=== PATIENT | male | born 1940 | race Caucasian/White ===

== ENCOUNTER 2023-02-20 17:07 | Emergency (ER) | payer OTHER ==
[~2023-02-20] VITALS: Ht 177.8 cm; Wt 131.5 kg
--- NOTE | 2023-02-20 17:07 | NUR ---
EMS STATES PT WAS AT A [employer] WHEN HE WENT UNRESPONSIVE AROUND 1545 WHEN BYSTANDERS INITIATED CPR. EMS INITIAL RHYTHM WAS TORSADES AND ON AND OFF VFIB. EMS INITIATED 2 IO'S AND GAVE MAGNESIUM, SODIUM BICARB, EPIX4, CALCIUM CHLORIDE, AND 450MG OF AMIODARONE. 1658-CODE BLUE PAGED OVERHEAD 1700-PT ARRIVED TO ROOM, PT TRANSFERRED FORM [facility] TO BED WITH THE LUKUS DEVICE DOING COMPRESSIONS 170-LUKUS DEVICE REMOVED AND COMPRESSION CONTINUED AND PADS PLACED 170-RHYTHM CHECK/NO PULSE/TIME OF CALLED
--- NOTE | 2023-02-20 17:15 | NUR ---
[facility] NOTIFIED [facility] OF . DOES NOT QUALIFY. CASE #[id number] AND SPOKE WITH MIKAYLA HART.
--- NOTE | 2023-02-20 17:18 | NUR ---
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
--- NOTE | 2023-02-20 17:26 | ER.PDOC ---
General Chief Complaint: Requesting Medical Care Stated Complaint: U/U TRAVEL OUT OF US: No Time seen by MD: 16:55 Source: EMS Exam Limitations: clinical condition History of Present Illness Initial Comments 82-year-old male brought by EMS for ongoing CPR. This team started CPR at 1603 and its been about an hour without pulse prior to this EMS team's arrival there was a bystander food service agent doing CPR for about 10 minutes. ACLS protocol was followed and V-fib one-point torsades another point were recognized but patient did not respond despite all attempted resuscitation efforts using ACLS medicines and fibrillator. Upon arrival to this emergency room patient had fixed and dilated pupils and asystole on the ekg monitor tech. After verifying the placement of the ET tube and reviewing the ekg monitor tech patient is pronounced DOA at at 1703. Subsequently the came and additional history is acquired. Patient and were driving when patient needed to go the bathroom they stop by rest. Patient was walking to the bathroom when he suddenly told his that he his legs are giving out and he collapsed never to wake up after that. CPR progress prior to ER and after the patient arrived here was extensively discussed with . Local judges notified. Review of Systems Constitutional: other (Not available) Physical Exam General Appearance: Other (Listless unresponsive pupils) EENT: other (Pupils are fixed and dilated) Respiratory: other (Alfredo tube in situ, bilateral breath sounds are positive and equal. However no breathing efforts) CVS: other (Pulseless) Progress Progress ekg monitor tech: Asystole Patient is pronounced DOA at 1703 ER DEPART Departure Time of Disposition: 17:24 Disposition: 20 Impression: Primary Impression: Cardiac arrest Condition: Duration or Time Spent with Pa: 30 LARRY SHRESTHA MD Feb 20, 2023 17:26
--- NOTE | 2023-02-20 17:42 | NUR ---
[employer] GLORIA [employer] SPEAKING WITH .
--- NOTE | 2023-02-20 18:30 | NUR ---
[facility] [employer] [employer] CALLED BY JUDGE CASTRO, [facility] NOAH #[id number] ARRIVED ASSISTED WITH SHROUD AND TRANSFER TO [facility]. 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 GETTING HOTEL AT [facility] FOR THE NIGHT THEY LIVE OUT OF TOWN.
[2023-02-20] MEDS ORDERED: BENADRYL ONE (19:59)
== END 2023-02-20 18:30 ==
LOC: EDBD 17:07 → ER 17:07
DX: I46.9 Cardiac arrest, cause unspecified (principal); I47.21 Torsades de pointes; I49.01 Ventricular fibrillation; Z46.82 Encounter for fitting and adjustment of non-vascular catheter
CPT/HCPCS: 99285; 92950; 82948; J1200